=== PATIENT | male | born 1935 | race Caucasian/White ===

== ENCOUNTER 2017-01-07 15:12 | Emergency (ER) | payer MEDICARE, OTHER ==
[~2017-01-07] VITALS: Ht 180.3 cm; Wt 70.0 kg
[2017-01-07 16:46] LABS: HEMOGLOBIN 11.5 g/dL (13.7-18.0); WHITE BLOOD COUNT 9.2 x10^3/uL (3.4-10)
[2017-01-07 17:01] LABS: ASPARTATE AMINO TRANSFERASE 16 U/L (15-37); BLOOD UREA NITROGEN 15 mg/dL (7-18)
[2017-01-07] MEDS ORDERED: ATOR10TA9 PO (19:30)
[2017-01-07] MEDS ORDERED: ASPI-496 PO (19:30)
[2017-01-07] MEDS ORDERED: TRAM50TA2 PO (19:30)
[2017-01-07] MEDS ORDERED: FENO145T32 PO (19:30)
[2017-01-07] MEDS ORDERED: OMEP-110 PO (19:30)
[2017-01-07] MEDS ORDERED: LEVO50TA5 PO (19:30)
[2017-01-07] MEDS ORDERED: FENO145T13 PO (19:30)
[2017-01-07] MEDS ORDERED: METO50TA82 PO (19:30)
[2017-01-07] MEDS ORDERED: TAMS0.4C2 PO (19:30)
[2017-01-07] MEDS ORDERED: GLIP5TAB22 PO (19:30)
[2017-01-07] MEDS ORDERED: CAPT50TA3 PO (19:30)
[2017-01-07 20:00] VITALS: BP 138/69
== END 2017-01-07 20:02 | disposition home or self-care (01) ==
LOC: ED 19:56
DX: N30.90 Cystitis, unspecified without hematuria (principal)
CPT/HCPCS: 36415; 76857; 80053; 81001; 85025; 87077; 87086; 87186; 99285

== ENCOUNTER 2017-01-14 14:04 | Observation (INO) | payer MEDICARE, OTHER ==
[~2017-01-14] VITALS: Ht 190.5 cm; Wt 66.3 kg
[~2017-01-14 14:04] MED LIST: ASPI-496 PO; ATOR10TA9 PO; CAPT50TA3 PO; FENO145T13 PO; FENO145T32 PO; GLIP5TAB22 PO; LEVO50TA5 PO; METO50TA82 PO; OMEP-110 PO; TAMS0.4C2 PO; TRAM50TA2 PO
[2017-01-14] MEDS ORDERED: SODIUM CHLORIDE 0.9% 1,000ML IVBOLUS ONE (15:00)
[2017-01-14] MEDS ORDERED: SODIUM CHLORIDE FLUSH 10ML SYR IVF ONE (15:00)
[2017-01-14 15:05] LABS: HEMATOCRIT 32.9 % (39.2-51.8); WHITE BLOOD COUNT 4.3 x10^3/uL (3.4-10)
[2017-01-14 15:15] LABS: BLOOD UREA NITROGEN 13 mg/dL (7-18)
[2017-01-14 15:21] LABS: ASPARTATE AMINO TRANSFERASE 11 U/L (15-37)
[2017-01-14 15:25] LABS: IS PT STATUS REG ER OR PRE ER? YES
[2017-01-14 16:26] LABS: PATH.CAST-FLAG NOT PRESENT; SPERM-FLAG NOT PRESENT; SRC-FLAG NOT PRESENT; XTAL-FLAG NOT PRESENT; YLC-FLAG NOT PRESENT
[2017-01-14] MEDS ORDERED: MAGNESIUM SULFATE PMX 2GM/50ML 50 ML IV ONE (18:00)
[2017-01-14] MEDS ORDERED: ACETAMINOPHEN 325 MG TABLET PO PRN (18:00)
[2017-01-14 19:19] LABS: TOTAL IRON BINDING CAPACITY 233 mcg/dL (250-450)
[2017-01-14 19:23] LABS: IS PT STATUS REG ER OR PRE ER? NO
[2017-01-14 20:00] VITALS: BP_SYST 90; BP_DIAS 50; BP_DIAS 60
[2017-01-14] MEDS: INSULIN ASPART 100 UNITS/ML, PEN SQ-INSULIN SCH ×2 (21:00→22:04)
[2017-01-14] MEDS: SODIUM CHLORIDE 0.9% 1,000 ML IV SCH (21:41)
[2017-01-14] MEDS: ATORVASTATIN 10 MG TABLET PO SCH (22:04)
[2017-01-15 01:14] LABS: IS PT STATUS REG ER OR PRE ER? NO
[2017-01-15 02:06] VITALS: BP 95/54
[2017-01-15 05:43] LABS: HEMATOCRIT 30.3 % (39.2-51.8); HEMOGLOBIN 10.3 g/dL (13.7-18.0)
[2017-01-15 05:54] LABS: BLOOD UREA NITROGEN 12 mg/dL (7-18)
[2017-01-15] MEDS: INSULIN ASPART 100 UNITS/ML, PEN SQ-INSULIN SCH ×4 (07:00→20:45)
[2017-01-15] MEDS ORDERED: MAGNESIUM SULFATE PMX 2GM/50ML 50 ML IV ONE (07:30)
[2017-01-15] MEDS ORDERED: POTASSIUM CHLORIDE 10% 40 MEQ/30 ML UDC PO ONE (07:30)
[2017-01-15 09:26] VITALS: BP 117/67
[2017-01-15] MEDS: ASPIRIN 81 MG TABLET EC PO SCH (10:14)
[2017-01-15] MEDS: FENOFIBRATE 145 MG TABLET PO SCH (10:14)
[2017-01-15] MEDS: LEVOTHYROXINE 50 MCG TABLET PO SCH (10:15)
[2017-01-15] MEDS: SODIUM CHLORIDE 0.9% 1,000 ML IV SCH (10:16)
[2017-01-15 16:00] VITALS: BP 128/71
[2017-01-15] MEDS ORDERED: SODIUM CHLORIDE 0.9% 1,000 ML IV SCH (17:53)
[2017-01-15 19:18] VITALS: BP 131/71
[2017-01-15] MEDS: ATORVASTATIN 10 MG TABLET PO SCH (20:04)
[2017-01-16 02:00] VITALS: BP 118/69
[2017-01-16 06:31] LABS: BLOOD UREA NITROGEN 9 mg/dL (7-18)
[2017-01-16 06:34] LABS: ASPARTATE AMINO TRANSFERASE 12 U/L (15-37)
[2017-01-16] MEDS: INSULIN ASPART 100 UNITS/ML, PEN SQ-INSULIN SCH ×3 (07:00→16:00)
[2017-01-16 08:00] VITALS: BP 133/68
[2017-01-16] MEDS: LEVOTHYROXINE 50 MCG TABLET PO SCH (10:37)
[2017-01-16] MEDS: ASPIRIN 81 MG TABLET EC PO SCH (10:37)
[2017-01-16] MEDS: FENOFIBRATE 145 MG TABLET PO SCH (10:37)
[2017-01-16 13:07] VITALS: BP 125/69
[2017-01-16] MEDS ORDERED: AMOXICILLIN/CLAV 500-125MG TABLET PO SCH (15:00)
[2017-01-16] MEDS ORDERED: METO25TA35 PO (15:30)
[2017-01-16] MEDS ORDERED: AMOX-367 PO (15:30)
== END 2017-01-16 17:21 | disposition home or self-care (01) ==
LOC: ED 15:06 → EDIP 17:17 → INTOOBSV 17:17 → 4EST 18:30 → 4WST 01-15 16:39
PROVIDERS: ADMIT Hospitalist; ATTEND Hospitalist
DX: R55 Syncope and collapse (principal); E83.42 Hypomagnesemia; E11.9 Type 2 diabetes mellitus without complications; I10 Essential (primary) hypertension; Z87.440 Personal history of urinary (tract) infections; D64.9 Anemia, unspecified; R63.4 Abnormal weight loss; Z87.891 Personal history of nicotine dependence
CPT/HCPCS: 36415; 71010; 80048; 80053; 81001; 82533; 82962; 83540; 83550; 83735; 84436; 84443; 84484; 85025; 87077; 87086; 87186; 93005; 93306; 93880; 96361; 96365; 96366; 97162; 99285; G0378; J1815; J3475; J7030

== ENCOUNTER → 2017-03-13 | Outpatient (CLI) | payer MEDICARE, OTHER ==
[~2017-03-13] MED LIST changes: +AMOX-367 PO; +METO25TA35 PO
== END | disposition home or self-care (01) ==
LOC: CFH 09:07
PROVIDERS: ATTEND Internal Medicine
DX: M48.54XA Collapsed vertebra, not elsewhere classified, thoracic region, initial encounter for fracture (principal); M48.56XA Collapsed vertebra, not elsewhere classified, lumbar region, initial encounter for fracture; M48.061 Spinal stenosis, lumbar region without neurogenic claudication; M48.07 Spinal stenosis, lumbosacral region; J92.9 Pleural plaque without asbestos
CPT/HCPCS: 71020; 72148

== ENCOUNTER 2018-12-05 10:41 | Outpatient (CLI) | payer MEDICARE, OTHER | END 2018-12-05 23:59 | disposition home or self-care (01) | LOC: RAD 10:41 | PROVIDERS: ATTEND Registered Nurse | DX: M48.56XA Collapsed vertebra, not elsewhere classified, lumbar region, initial encounter for fracture (principal); M47.817 Spondylosis without myelopathy or radiculopathy, lumbosacral region | CPT/HCPCS: 72100 ==